=== PATIENT | female | born 1975 | race Caucasian/White ===

== ENCOUNTER → 2018-09-07 | Outpatient (CLI) | payer OTHER ==
[2018-09-07] MEDS: IOHEXOL 100 ML (11:30)
[2018-09-07] MEDS: SOD CHLORIDE 0.9% 100 ML (11:30)
== END | disposition home or self-care (01) ==
LOC: C/S 10:04
DX: R07.9 Chest pain, unspecified (principal); R06.02 Shortness of breath; R94.39 Abnormal result of other cardiovascular function study
CPT/HCPCS: 75571; 75571-59; 75574